=== PATIENT | male | born 1990 | race Caucasian/White ===

== ENCOUNTER 2024-07-31 18:50 | Emergency (ER) | payer BC, SELFPAY ==
[2024-07-31 18:54] VITALS: BP 149/103
[2024-07-31 19:14] LABS: % Basophils 0.7 % (0-2); % Eosinophils 1.7 % (0-6); % Immature Granulocytes 0.5 % (0-0.5); % Lymphocytes 24.4 % (20.5-51.1); % Monocytes 10.8 % (1.7-9.3); % Neutrophils 61.9 % (42.2-75.2); Absolute Basophils 0.1 10^3/uL (0-0.2); Absolute Eosinophils 0.2 10^3/uL (0-0.7); Absolute Lymphocytes 2.1 10^3/uL (1.2-3.4); Absolute Monocytes 0.9 10^3/uL (0.1-0.6); Absolute Neutrophils 5.3 10^3/uL (1.4-6.5); Mean Corp Hgb Conc. 34.1 g/dL (33.0-37.0); Mean Corpuscular Hgb 29.5 pg (27.0-31.0); Mean Corpuscular Volume 86.6 fL (80.0-94.0); Mean Platelet Volume 9.3 fL (7.4-10.4); Nucleated Red Blood Cells % 0 % (-); Platelet Count 211 10^3/uL (130-400); Red Blood Cell Count 5.08 10^6/uL (4.70-6.10); White Blood Cell Count 8.6 10^3/uL (4.8-10.8)
[2024-07-31 19:32] LABS: ALT (SGPT) 41 U/L (0-50); AST (SGOT) 29 U/L (17-59); Albumin 4.8 g/dl (3.5-5.0); Alkaline Phosphatase 55 U/L (38-126); Blood Urea Nitrogen 18 mg/dl (9-20); Calcium 9.6 mg/dl (8.4-10.2); Carbon Dioxide 31 mmol/L (22-30); Chloride 100 mmol/L (98-107); Glucose 78 mg/dl (70-99); Potassium 4.1 mmol/L (3.5-5.1); Sodium 142 mmol/L (135-145); Total Bilirubin 0.5 mg/dl (0.2-1.3); Total Protein 7.7 g/dl (6.3-8.2); eGFR > 60.00
[2024-07-31 19:38] LABS: Troponin I < 0.012 ng/ml
[2024-07-31 21:32] VITALS: BMI 23.7
[2024-07-31 21:37] VITALS: BP 133/84
--- NOTE | 2024-07-31 21:37 | ED.GENMED ---
History of Present Illness
General
Chief Complaint: Breathing Problem
Source: patient
Exam Limitations: none
Time Seen by Provider: 07/31/24 21:28
Nursing documentation reviewed up to this point in time: agreed with
History of Present Illness
History of Present Illness:
Patient states he developed calf pain this weekend. He had an outpatient US today which confirmed right popliteal DVT. He was started on Eliquis, has had 1 dose. TOnight he noted chest pain. Brought self to ED for eval. Prior history of DVt
approx 7 years ago, unprovoked. Treated successfully with xarelto.
Past History
Past History
ED Past Medical History: None
ED Past Surgical History: None
Social History
Tobacco: Non-smoker (uses nicotine pouch)
Alcohol: Occasional
Drug: None
Review of Systems
Review of Systems
Allergies reviewed?: Yes
All Other Systems: ROS reviewed and negative except as documented in HPI and ROS
Constitutional: Reports no symptoms
EENT: Reports no symptoms
Respiratory: Reports no symptoms
Cardiac: Reports chest pain
ABD/GI: Reports no symptoms
: Reports no symptoms
Musculoskeletal: Reports other (right calf pain)
Skin: Reports no symptoms
Neurological: Reports no symptoms
Psychiatric: Reports no symptoms
Phy Exam
General Physical Exam
General Presentation: well appearing and no apparent distress
General age: appears stated age
General Skin: warm and dry
General Habitus: normal
Cardiovascular Exam
Cardiovascular Exam: regular rate/rhythm and no edema
Pulmonary Exam
Pulmonary Exam: lungs clear and no respiratory distress
Musculoskeletal Exam
Musculoskeletal Exam: full ROM and neuro vasc intact
Skin Exam
Skin Exam: normal color, warm/dry and no rash
Psychiatric Exam
Psychiatric Exam: normal mood/affect
Course
Orders/Labs/Results
Orders:
Orders
07/31/24 18:56
Electrocardiogram (*1) Urgent
Reason for Study: Shortness of Breath
EKG- Treatment ONCE
07/31/24 19:06
Complete Blood Count/With Diff Urgent
Comprehensive Metabolic Panel Urgent
Troponin I Urgent
07/31/24 21:27
CT Chest Pe Study Urgent
Comment:
Reason For Exam: chest pain, new dx dvt
Abnormal Lab Results
07/31/24
19:06
Absolute Monos (auto) 0.9 H 10^3/uL
(0.1-0.6)
Monocytes % 10.8 H %
(1.7-9.3)
Carbon Dioxide 31 H mmol/L
(22-30)
Creatinine 1.5 H mg/dL
(0.7-1.3)
07/31/24 19:06
07/31/24 19:06
Vital Signs
Initial and Last Documented VS:
Initial Vital Signs
Temp Pulse Resp BP Pulse Ox
98.2 F 68 18 149/103 99
07/31/24 18:54 07/31/24 18:54 07/31/24 18:54 07/31/24 18:54 07/31/24 18:54
Last Documented Vital Signs
Temp Pulse Resp BP Pulse Ox
98.2 F 56 16 120/77 98
07/31/24 18:54 07/31/24 21:44 07/31/24 21:44 07/31/24 23:03 07/31/24 23:04
MDM/Problems Addressed
Differential Diagnosis Includes:
Patient to ED with report of intermittent left chest pain with deep breathing. No MORGAN. Developed right calf pain over weekend. Had outpatient US which confirmed popliteal DVT. He was started on Eliquis by his PCP, he has had [address]
confirms PE. No evidence of heart strain. Will continue Eliquis as prescribed, close follow up withPCP, pulmonology. He willschedule appt with pulm in AM. Given instructions on s/s to return to ED and he is agreeable to plan.PUlse ox 98% RA,
LCTA, EKG NSR. Case discussed with Dr. Atkins who agrees with plan.
*Critical Care Note
Total Time (30-74mins, 75-104mins- exclusive of procedures): Not Applicable
ED Attending Note
-
Portions of this chart may have been created with voice recognition software.� Occasional wrong word or��sound alike� substitutions may have occurred due to the inherent limitations of voice recognition software.
Discharge Plan
Departure
Patient Disposition: Home (Routine Discharge)
Date of Disposition: 07/31/24
Time of Disposition: 22:39
Patient with high blood pressure during this ER visit?: No
Condition: Good
Discharge Problem:
Pulmonary embolism
Instructions: Pulmonary embolism - Discharge instructions, ED Low Risk PE
Referrals:
Andrew Denson MD [Active] - Call in 1-3 days for appt
Activity Restrictions/Additional Instructions:
Return to the emergency department immediately for any changes in/worsening of your symptoms.
Interventions
Interventions:
*Risk Screen - Suicide Last Done: 07/31/24 18:54
*General Assessment Last Done: 07/31/24 18:54
*Neglect/Abuse Screening Last Done: 07/31/24 18:54
ED- Fall Risk Assessment Last Done: 07/31/24 21:32
*ED COVID-19 Vaccine History Last Done: 07/31/24 18:54
*Nursing Disposition Last Done: 07/31/24 23:13
ED- Cardiac Assessment Last Done: 07/31/24 21:32
ED- Pulmonary Assessment Last Done: 07/31/24 21:32
Discharge Date and Time
Discharge Date/Time: 07/31/24 23:13
Print Language: SLOVENIAN
[2024-07-31 23:03] VITALS: BP 120/77
== END 2024-07-31 23:13 | disposition home or self-care (01) ==
LOC: EMR 18:50
PROVIDERS: Emergency Medicine; EMERGENCY PHYSICIAN Emergency Medicine
DX: I26.99 Other pulmonary embolism without acute cor pulmonale (principal); Z86.718 Personal history of other venous thrombosis and embolism
CPT/HCPCS: 99285; 71275; 80053; 84484; 85025; 93005; Q9967